=== PATIENT | female | born 1960 | race African-American/Black ===

== ENCOUNTER 2023-04-22 22:22 | Inpatient (IN) | payer MEDICARE ==
[~2023-04-22] VITALS: Ht 177.8 cm; Wt 157.5 kg
[~2023-04-22 22:22] MED LIST: ASPI-1444 PO; ATEN100T92 PO; DICL100G51 TP; DOCU-350 PO; DULO-114 PO; ERGO500014 PO; FERR325T27 PO; FOLI-130 PO; GABA-1216 PO; HYDR-4061 PO; LEVO200 PO; POLY17PO PO; TAMS-1 PO
[2023-04-22] MEDS ORDERED: NALOXONE HCL 1 MG/ML 2 ML SYRINGE ONE (22:36)
[2023-04-22] MEDS ORDERED: PROPOFOL 1000 MG/ISO-OSM 100 ML ONE (23:02)
[2023-04-22 23:05] LABS: APPEARANCE,URINE CLEAR (CLEAR); BILIRUBIN,URINE NEGATIVE (NEGATIVE); GLUCOSE, URINE (UA) NEGATIVE (NEGATIVE); KETONES,URINE NEGATIVE (NEGATIVE); LEUKOCYTE ESTERASE ,URINE NEGATIVE (NEGATIVE); NITRATE,URINE POSITIVE (NEGATIVE); OCCULT BLOOD,URINE NEGATIVE (NEGATIVE); PROTEIN,URINE 300-600,SEE CONFIRM mg/dL (NEGATIVE); SPECIFIC GRAVITIY, URINE 1.019 (1.003-1.030); UROBILINOGEN,URINE <=1.0 mg/dL (<=1.0)
[2023-04-22 23:12] LABS: AMPHET/METH SCREEN,URINE NEGATIVE (NEGATIVE); BARBITURATE SCREEN, URINE NEGATIVE (NEGATIVE); BENZODIAZEPINES SCREEN,URINE NEGATIVE (NEGATIVE); CANNABINOID SCREEN,URINE NEGATIVE (NEGATIVE); COCAINE SCREEN,URINE NEGATIVE (NEGATIVE); METHADONE SCREEN, URINE NEGATIVE (NEGATIVE); OPIATE SCREEN,URINE NEGATIVE (NEGATIVE); PHENCYCLIDINE SCREEN,URINE NEGATIVE (NEGATIVE)
[2023-04-22 23:19] LABS: BACTERIA,URINE Many /HPF (None Seen); RBC,URINE None Seen /HPF (0-2); SQUAMOUS EPITHELIAL CELL,UR Rare /LPF (None Seen)
[2023-04-22 23:35] LABS: SULFOSALICYLIC ACID,URINE 3+ (Negative)
[2023-04-22 23:38] LABS: BASOPHILS % (AUTO) 0.5 % (0.0-2.0); EOSINOPHILS % (AUTO) 0.5 % (1.0-6.0); HEMATOCRIT 40.7 % (36-46); HEMOGLOBIN 13.1 g/dL (12.0-16.0); LYMPHOCYTES # (AUTO) 1.7 K/uL (1.0-4.8); LYMPHOCYTES % (AUTO) 16.2 % (22.0-44.0); MEAN CORPUSCULAR HEMOGLOBIN 28.6 pg (26.0-34.0); MEAN CORPUSCULAR HGB CONC 32.2 G/dL (31.0-37.0); MEAN CORPUSCULAR VOLUME 89 fL (80-100); NEUTROPHILS # (AUTO) 7.8 K/uL (1.8-7.7); NEUTROPHILS % (AUTO) 73.8 % (40.0-70.0); PLATELET COUNT (AUTO) 229 K/uL (150-450); RED BLOOD CELL COUNT(AUTO) 4.59 MIL/uL (4.00-5.20); RED CELL DISTRIBUTION WIDTH 16.9 % (11.5-14.5)
[2023-04-22] MEDS ORDERED: ASPI-1444 PO (23:49)
[2023-04-22] MEDS ORDERED: DULO-113 PO (23:49)
[2023-04-22] MEDS ORDERED: SERT-439 PO (23:49)
[2023-04-22] MEDS ORDERED: FURO20TA4 PO (23:49)
[2023-04-22] MEDS ORDERED: LEVO112T7 PO (23:49)
[2023-04-22] MEDS ORDERED: GABA-1181 PO (23:49)
[2023-04-22] MEDS ORDERED: ATEN100T92 PO (23:49)
[2023-04-22 23:51] LABS: ANION GAP 6 mmol/L (8-16); CALCIUM, TOTAL 8.8 mg/dL (8.8-10.5); CARBON DIOXIDE 29 mmol/L (22-29); CHLORIDE 96 mmol/L (98-107); GLOMERULAR FILTR. RATE CALC > 60 mL/min (>60); GLUCOSE,RANDOM 156 mg/dL (70-110); POTASSIUM 4.2 mmol/L (3.5-5.1); SODIUM SERUM 131 mmol/L (136-145)
[2023-04-22 23:52] LABS: PROTHROMBIN TIME 10.6 SEC (9.4-11.6)
[2023-04-22 23:56] LABS: ABG BASE EXCESS 0.2 mmol/L (-2.0-3.0); ABG CARBOXYHEMOGLOBIN 0.8 % (0.0-1.5); ABG HCO3 24.9 mmol/L (22.0-26.0); ABG METHEMOGLOBIN 0.1 % (0.0-1.5); ABG OXYGEN CONTENT 19.5 mL/dL (15.0-23.0); ABG OXYGEN SATURATION 98.6 % (95.0-98.0); ABG OXYHEMOGLOBIN 97.7 % (94.0-100.0); ABG PCO2 38 mmHg (35-45); ABG PH 7.429 (7.35-7.450); ABG TOTAL HEMOGLOBIN 14.1 G/dL (12.0-18.0); PO2, ARTERIAL BG 121.4 mmHg (79.0-87.0); SOURCE, BLOOD GAS ARTERIAL; TEMPERATURE, FAHRENHEIT, BG 98.6 FAHREN (96.0-98.6)
[2023-04-22 23:57] LABS: O2 DEVICE,BLOOD GAS VENTILATOR (ROOM AIR); SITE, BLOOD GAS LFT RADIAL
[2023-04-22 23:58] LABS: PEEP,BG 5 cm H2O; VT, ABG 500 ml
[2023-04-22 23:58] LABS: AMMONIA 14 umol/L (11-32); LACTIC ACID 1.3 mmol/L (0.4-2.0)
[2023-04-23 00:03] LABS: ALANINE AMINOTRANSFERASE 15 U/L (12-78); ALBUMIN 2.9 g/dL (3.4-5.0); ALKALINE PHOSPHATASE 110 U/L (46-116); ASPARTATE AMINOTRANSFERASE 25 U/L (15-37); BILIRUBIN,TOTAL 0.3 mg/dL (0.1-1.0); CREATINE KINASE, TOTAL ONLY 114 U/L (26-192); TOTAL PROTEIN, SERUM 9.7 g/dL (6.4-8.2)
[2023-04-23 00:04] LABS: ACETAMINOPHEN < 2 mcg/mL (10-30)
[2023-04-23 00:09] LABS: SALICYLATE 1.1 mg/dL (2.8-20.0)
[2023-04-23] MEDS ORDERED: NiCARDipine HCL 25 MG in SODIUM CHLORIDE 0.9% 240 ML IV PRN ×2 (01:30→13:30)
[2023-04-23] MEDS ORDERED: ONDANSETRON HCL 4 MG/2 ML VIAL IVP PRN ×2 (01:30→02:00)
[2023-04-23] MEDS ORDERED: ACETAMINOPHEN 325 MG TABLET PO PRN (01:30)
[2023-04-23] MEDS ORDERED: 0.9% SODIUM CHLORIDE 10 ML SYRINGE IVP PRN (01:30)
[2023-04-23] MEDS: PROPOFOL 1000 MG/ISO-OSM 100 ML IV PRN ×2 (01:38→05:39)
[2023-04-23] MEDS ORDERED: CefTRIAXone 1 GM/DEXTROSE 50 ML IV SCH (02:00)
[2023-04-23] MEDS ORDERED: PROPOFOL 1000 MG/ISO-OSM 100 ML IV PRN (02:00)
[2023-04-23] MEDS: LevETIRAcetam 500 MG in DEXTROSE 5%-WATER 100 ML IV SCH ×2 (02:09→15:41)
[2023-04-23] MEDS ORDERED: MANNITOL 20%-100 GM/500 ML 500 ML IV ONE (02:15)
[2023-04-23] MEDS: AZITHROMYCIN 500 MG/NS 250 ML IV SCH (02:58)
[2023-04-23 05:10] VITALS: BP 129/76
[2023-04-23 08:00] VITALS: BP 146/74
[2023-04-23] MEDS ORDERED: LABETALOL HCL 5 MG/ML 20 ML VIAL IVP PRN (08:00)
[2023-04-23] MEDS: HydrALAZINE HCL 20 MG/ML VIAL IVP PRN ×2 (09:03→11:49)
[2023-04-23] MEDS ORDERED: IOHEXOL 350 MG/ML 100 ML VIAL ONE (10:44)
[2023-04-23] MEDS ORDERED: SODIUM CHLORIDE 0.9% 100 ML ONE (10:44)
[2023-04-23] MEDS ORDERED: SODIUM CHLORIDE 0.9% 250 ML IV ONE ×2 (11:25→23:43)
[2023-04-23] MEDS: PIPERACILLIN/TAZO 3.375 GM/D5W 50 ML IV SCH ×2 (11:38→18:24)
[2023-04-23 12:00] VITALS: BP 172/87
[2023-04-23] MEDS ORDERED: NOREPINEPHRINE 8 MG/D5%-WATER 250 ML IV ONE (13:27)
[2023-04-23] MEDS: NOREPINEPHRINE 8 MG/D5%-WATER 250 ML IV PRN (14:06)
[2023-04-23 16:00] VITALS: BP 101/63
[2023-04-23 17:26] LABS: GLUCOSE,POINT OF CARE 123 MG/DL (70-110)
[2023-04-23 18:21] LABS: GLUCOSE,POINT OF CARE 144 MG/DL (70-110)
[2023-04-23 20:00] VITALS: BP 111/71
[2023-04-24] VITALS (7 sets, daily range): BP systolic 87–127; BP diastolic 56–83
[2023-04-24] MEDS: PIPERACILLIN/TAZO 3.375 GM/D5W 50 ML IV SCH ×5 (00:10→23:59)
[2023-04-24 00:37] LABS: GLUCOSE,POINT OF CARE 140 MG/DL (70-110)
[2023-04-24] MEDS: LevETIRAcetam 500 MG in DEXTROSE 5%-WATER 100 ML IV SCH ×2 (01:20→13:41)
[2023-04-24] MEDS: AZITHROMYCIN 500 MG/NS 250 ML IV SCH (01:21)
[2023-04-24 05:29] LABS: BASOPHILS % (AUTO) 0.2 % (0.0-2.0); EOSINOPHILS % (AUTO) 0.1 % (1.0-6.0); HEMATOCRIT 43.1 % (36-46); HEMOGLOBIN 13.6 g/dL (12.0-16.0); LYMPHOCYTES # (AUTO) 1.2 K/uL (1.0-4.8); LYMPHOCYTES % (AUTO) 6.6 % (22.0-44.0); MEAN CORPUSCULAR HGB CONC 31.6 G/dL (31.0-37.0); MEAN CORPUSCULAR VOLUME 89 fL (80-100); MONOCYTES # (AUTO) 1.4 K/uL (0.1-1.0); MONOCYTES % (AUTO) 8.1 % (2.0-9.0); NEUTROPHILS # (AUTO) 14.9 K/uL (1.8-7.7); PLATELET COUNT (AUTO) 283 K/uL (150-450); RED BLOOD CELL COUNT(AUTO) 4.87 MIL/uL (4.00-5.20); RED CELL DISTRIBUTION WIDTH 16.8 % (11.5-14.5)
[2023-04-24 05:51] LABS: ALANINE AMINOTRANSFERASE 15 U/L (12-78); ALBUMIN 2.3 g/dL (3.4-5.0); ALKALINE PHOSPHATASE 101 U/L (46-116); ANION GAP 9 mmol/L (8-16); ASPARTATE AMINOTRANSFERASE 28 U/L (15-37); BILIRUBIN,TOTAL 1.1 mg/dL (0.1-1.0); CALCIUM, TOTAL 9.1 mg/dL (8.8-10.5); CARBON DIOXIDE 28 mmol/L (22-29); CHLORIDE 108 mmol/L (98-107); CREATININE 1.02 mg/dL (0.60-1.30); GLOMERULAR FILTR. RATE CALC > 60 mL/min (>60); GLUCOSE,RANDOM 127 mg/dL (70-110); POTASSIUM 3.7 mmol/L (3.5-5.1); SODIUM SERUM 145 mmol/L (136-145); TOTAL PROTEIN, SERUM 9.1 g/dL (6.4-8.2)
[2023-04-24 07:41] LABS: GLUCOSE,POINT OF CARE 140 MG/DL (70-110)
[2023-04-24] MEDS ORDERED: IOHEXOL 350 MG/ML 100 ML VIAL ONE (09:39)
[2023-04-24] MEDS ORDERED: SODIUM CHLORIDE 0.9% 100 ML ONE (09:39)
[2023-04-24] MEDS: NOREPINEPHRINE 8 MG/D5%-WATER 250 ML IV PRN (13:40)
[2023-04-24 23:51] LABS: GLUCOSE,POINT OF CARE 119 MG/DL (70-110)
[2023-04-25] VITALS (7 sets, daily range): BP systolic 94–110; BP diastolic 53–73
[2023-04-25 00:12] LABS: GLUCOSE,POINT OF CARE 102 MG/DL (70-110)
[2023-04-25] MEDS: AZITHROMYCIN 500 MG/NS 250 ML IV SCH (01:50)
[2023-04-25 02:21] LABS: GLUCOSE,POINT OF CARE 114 MG/DL (70-110)
[2023-04-25] MEDS: LevETIRAcetam 500 MG in DEXTROSE 5%-WATER 100 ML IV SCH ×2 (03:11→15:05)
[2023-04-25] MEDS: NOREPINEPHRINE 8 MG/D5%-WATER 250 ML IV PRN ×2 (05:46→16:26)
[2023-04-25] MEDS: PIPERACILLIN/TAZO 3.375 GM/D5W 50 ML IV SCH ×3 (05:47→17:21)
[2023-04-25] MEDS ORDERED: SODIUM CHLORIDE 0.9% 250 ML IV ONE (05:58)
[2023-04-25 08:52] LABS: GLUCOSE,POINT OF CARE 88 MG/DL (70-110)
[2023-04-25 15:14] LABS: BASOPHILS % (AUTO) 0.5 % (0.0-2.0); EOSINOPHILS % (AUTO) 1.3 % (1.0-6.0); HEMATOCRIT 44.2 % (36-46); HEMOGLOBIN 13.8 g/dL (12.0-16.0); LYMPHOCYTES # (AUTO) 2.2 K/uL (1.0-4.8); LYMPHOCYTES % (AUTO) 12.8 % (22.0-44.0); MEAN CORPUSCULAR HGB CONC 31.1 G/dL (31.0-37.0); MEAN CORPUSCULAR VOLUME 90 fL (80-100); MONOCYTES # (AUTO) 1.9 K/uL (0.1-1.0); MONOCYTES % (AUTO) 11.2 % (2.0-9.0); NEUTROPHILS # (AUTO) 12.6 K/uL (1.8-7.7); NEUTROPHILS % (AUTO) 74.2 % (40.0-70.0); PLATELET COUNT (AUTO) 248 K/uL (150-450); RED BLOOD CELL COUNT(AUTO) 4.91 MIL/uL (4.00-5.20); RED CELL DISTRIBUTION WIDTH 17.7 % (11.5-14.5)
[2023-04-25 15:20] LABS: CALCIUM, TOTAL 9.7 mg/dL (8.8-10.5); CREATININE 1.89 mg/dL (0.60-1.30); POTASSIUM 3.7 mmol/L (3.5-5.1)
[2023-04-25 15:27] LABS: BILIRUBIN,TOTAL 1.2 mg/dL (0.1-1.0); TOTAL PROTEIN, SERUM 8.7 g/dL (6.4-8.2)
[2023-04-25 21:06] LABS: GLUCOSE,POINT OF CARE 96 MG/DL (70-110)
[2023-04-25 21:06] LABS: GLUCOSE,POINT OF CARE 125 MG/DL (70-110)
[2023-04-26] VITALS: BP 110/68
[2023-04-26] MEDS: PIPERACILLIN/TAZO 3.375 GM/D5W 50 ML IV SCH ×5 (00:20→23:52)
[2023-04-26] MEDS: NOREPINEPHRINE 8 MG/D5%-WATER 250 ML IV PRN ×3 (00:22→17:16)
[2023-04-26 00:46] LABS: GLUCOSE,POINT OF CARE 115 MG/DL (70-110)
[2023-04-26] MEDS: AZITHROMYCIN 500 MG/NS 250 ML IV SCH (01:46)
[2023-04-26] MEDS: LevETIRAcetam 500 MG in DEXTROSE 5%-WATER 100 ML IV SCH ×2 (02:54→14:25)
[2023-04-26 04:00] VITALS: BP 94/62
[2023-04-26 08:00] VITALS: BP 91/58
[2023-04-26 12:00] VITALS: BP 91/57
[2023-04-26 12:56] LABS: GLUCOSE,POINT OF CARE 124 MG/DL (70-110)
[2023-04-26 13:03] LABS: BASOPHILS % (AUTO) 0.6 % (0.0-2.0); EOSINOPHILS % (AUTO) 1.8 % (1.0-6.0); HEMATOCRIT 42.4 % (36-46); HEMOGLOBIN 13.4 g/dL (12.0-16.0); LYMPHOCYTES # (AUTO) 1.7 K/uL (1.0-4.8); LYMPHOCYTES % (AUTO) 11.4 % (22.0-44.0); MEAN CORPUSCULAR HEMOGLOBIN 28.2 pg (26.0-34.0); MEAN CORPUSCULAR HGB CONC 31.6 G/dL (31.0-37.0); MEAN CORPUSCULAR VOLUME 89 fL (80-100); MONOCYTES # (AUTO) 1.4 K/uL (0.1-1.0); NEUTROPHILS # (AUTO) 11.7 K/uL (1.8-7.7); NEUTROPHILS % (AUTO) 77.2 % (40.0-70.0); PLATELET COUNT (AUTO) 236 K/uL (150-450); RED BLOOD CELL COUNT(AUTO) 4.75 MIL/uL (4.00-5.20); RED CELL DISTRIBUTION WIDTH 18.5 % (11.5-14.5)
[2023-04-26 13:09] LABS: CALCIUM, TOTAL 9.9 mg/dL (8.8-10.5); CREATININE 1.87 mg/dL (0.60-1.30); POTASSIUM 3.2 mmol/L (3.5-5.1)
[2023-04-26 13:17] LABS: BILIRUBIN,TOTAL 1.3 mg/dL (0.1-1.0); TOTAL PROTEIN, SERUM 8.8 g/dL (6.4-8.2)
[2023-04-26] MEDS: POTASSIUM CHL 10 MEQ/WATER 50 ML IV SCH ×2 (14:26→15:58)
[2023-04-26 16:00] VITALS: BP 88/56
[2023-04-26] MEDS ORDERED: DEXTROSE 5%-WATER 1,000 ML IV SCH (18:45)
[2023-04-26 19:06] LABS: GLUCOSE,POINT OF CARE 131 MG/DL (70-110)
[2023-04-26 20:00] VITALS: BP 99/66
[2023-04-27] VITALS: BP 98/62
[2023-04-27 00:21] LABS: GLUCOSE,POINT OF CARE 160 MG/DL (70-110)
[2023-04-27] MEDS: AZITHROMYCIN 500 MG/NS 250 ML IV SCH (01:10)
[2023-04-27] MEDS: LevETIRAcetam 500 MG in DEXTROSE 5%-WATER 100 ML IV SCH ×2 (01:10→14:14)
[2023-04-27] MEDS: NOREPINEPHRINE 8 MG/D5%-WATER 250 ML IV PRN ×3 (01:50→18:51)
[2023-04-27 04:00] VITALS: BP 106/63
[2023-04-27] MEDS: DEXTROSE 5%-WATER 1,000 ML IV SCH ×2 (05:45→19:09)
[2023-04-27] MEDS: PIPERACILLIN/TAZO 3.375 GM/D5W 50 ML IV SCH ×4 (05:46→23:23)
[2023-04-27 06:05] LABS: BILIRUBIN,TOTAL 1.6 mg/dL (0.1-1.0); CALCIUM, TOTAL 10.5 mg/dL (8.8-10.5); CREATININE 1.85 mg/dL (0.60-1.30); POTASSIUM 3.4 mmol/L (3.5-5.1)
[2023-04-27 06:45] LABS: GLUCOSE,POINT OF CARE 156 MG/DL (70-110)
[2023-04-27] MEDS ORDERED: DEXTROSE 50%-WATER 25 GM/50 ML SYRINGE IVP PRN (07:45)
[2023-04-27 08:00] VITALS: BP 102/67
[2023-04-27] MEDS ORDERED: DEXTROSE 5%-0.9% SODIUM CHL 1,000 ML IV ONE (09:30)
[2023-04-27 12:00] VITALS: BP 92/71
[2023-04-27] MEDS: INSULIN LISPRO 100 UNITS/ML SQ PRN ×2 (13:04→23:33)
[2023-04-27 16:00] VITALS: BP 120/77
[2023-04-27 19:11] LABS: GLUCOSE,POINT OF CARE 195 MG/DL (70-110)
[2023-04-27 20:00] VITALS: BP 124/84
[2023-04-28] VITALS: BP 101/71
[2023-04-28 00:11] LABS: GLUCOSE,POINT OF CARE 230 MG/DL (70-110)
[2023-04-28] MEDS: AZITHROMYCIN 500 MG/NS 250 ML IV SCH (02:10)
[2023-04-28] MEDS: LevETIRAcetam 500 MG in DEXTROSE 5%-WATER 100 ML IV SCH ×2 (02:11→14:00)
[2023-04-28 04:00] VITALS: BP 94/65
[2023-04-28] MEDS: NOREPINEPHRINE 8 MG/D5%-WATER 250 ML IV PRN ×2 (04:01→14:37)
[2023-04-28] MEDS: PIPERACILLIN/TAZO 3.375 GM/D5W 50 ML IV SCH ×2 (05:58→12:00)
[2023-04-28] MEDS: INSULIN LISPRO 100 UNITS/ML SQ PRN (06:00)
[2023-04-28 08:00] VITALS: BP 95/63
[2023-04-28] MEDS: DEXTROSE 5%-WATER 1,000 ML IV SCH (08:25)
[2023-04-28 08:31] LABS: GLUCOSE,POINT OF CARE 217 MG/DL (70-110)
[2023-04-28 12:00] VITALS: BP 100/69
[2023-04-28 16:39] VITALS: BP 99/64
[2023-04-28 19:46] LABS: GLUCOSE,POINT OF CARE 234 MG/DL (70-110)
[2023-04-28 20:00] VITALS: BP 99/67
[2023-04-29] VITALS: BP 106/64
[2023-04-29] MEDS: NOREPINEPHRINE 8 MG/D5%-WATER 250 ML IV PRN (00:27)
[2023-04-29 04:00] VITALS: BP 101/67
== END 2023-04-29 17:34 | DRG 64 ==
LOC: EDBD 22:24 → EMS 22:24 → ICU 04-23 03:42
PROVIDERS: ADMIT Internal Medicine; ATTEND Internal Medicine
PROC: 5A1955Z Respiratory Ventilation, Greater than 96 Consecutive Hours (ICD-10-PCS; principal; 2023-04-23)
PROC: 0BH17EZ Insertion of Endotracheal Airway into Trachea, Via Natural or Artificial Opening (ICD-10-PCS; 2023-04-23)
PROC: 05HB33Z Insertion of Infusion Device into Right Basilic Vein, Percutaneous Approach (ICD-10-PCS; 2023-04-23)
PROC: 05HC33Z Insertion of Infusion Device into Left Basilic Vein, Percutaneous Approach (ICD-10-PCS; 2023-04-23)
DX: I61.5 Nontraumatic intracerebral hemorrhage, intraventricular (principal); J69.0 Pneumonitis due to inhalation of food and vomit; J96.01 Acute respiratory failure with hypoxia; G91.9 Hydrocephalus, unspecified; E87.1 Hypo-osmolality and hyponatremia; Z68.42 Body mass index [BMI] 45.0-49.9, adult; E66.9 Obesity, unspecified; E66.01 Morbid (severe) obesity due to excess calories; I10 Essential (primary) hypertension; E11.9 Type 2 diabetes mellitus without complications; Z79.82 Long term (current) use of aspirin; Z79.899 Other long term (current) drug therapy
CPT/HCPCS: 36245; 36569; 36600; 51702; 70450; 70496; 71045; 71250; 76937; 78606; 80053; 80307; 81001; 81002; 82140; 82550; 82805; 82962; 83605; 84132; 84484; 85025; 85610; 85730; 87040; 87070; 87081; 87086; 87186; 93005; 94002; 94003; 99291; A9521; G0378; G0480; G0481; J0360; J0456; J0696; J0712; J2310; J2543; J2704; J3480; J3490; J7050; J7060; Q9967; 36415-L1; 36415-TC